=== PATIENT | female | born 1960 | race Caucasian/White ===

== ENCOUNTER → 2016-10-06 | Outpatient (CLI) | payer OTHER ==
--- NOTE | 2016-10-10 08:01 | MAMMOGRAPHY REPORT ---
THIS REPORT HAS BEEN AMENDED. BILATERAL DIGITAL SCREENING MAMMOGRAM TOMOSYNTHESIS WITH CAD: 10/06/2016 CLINICAL HISTORY: Routine screening. TECHNIQUE: Bilateral breast tomosynthesis in addition to standard 2D mammography was performed. Piloe nt study was also evaluated with a Computer Aided Detection (CAD) system. COMPARISON: No prior exams were available for comparison. BREAST COMPOSITION: There are scattered areas of fibroglandular density in both breasts. FINDINGS: There is a 7 mm focal asymmetry in the 6:00 to 7:00 middle one third of the left breast wi th angular borders on the tomosynthesis images. Definitive characterization with targeted ultrasound and possible additional mammographic views is recommended. No other suspicious mass, architectural distortion or cluster of microcalcifications is seen bilatera lly. IMPRESSION: ACR BI-RADS CATEGORY 0: INCOMPLETE EVALUATION: NEED ADDITIONAL IMAGING EVALUATION The 7 mm focal asymmetry in the left 6:007:00 breast needs additional evaluation. The patient will be called to schedule an appointment. Approximately 10% of breast cancers are not detected with mammography. A negative mammographic report should not delay biopsy if a clinically suggestive mass is present. Marly Esquivel M.D. ay/:10/09/2016 15:20:44 Rivet Tosser: Simba JONES(Franky)(M), [facility] letter sent: [facility] 0 BI-RADS Code: ACR BI-RADS Category 0: Incomplete Evaluation: Need Additional Imaging Evaluation AMENDMENT: 10/19/2016 Marly Esquivel M.D. Prior outside mammograms from [place] dated 08/19/2009 and 03/16/2011 became available for review. T he 7 mm focal asymmetry in the left 6:00 to 7:00 breast as seen on the current screening exam is stil l increasingly conspicuous compared to the prior outside exams. Therefore, additional imaging evalua tion is needed. Amended BI-RADS: ACR BI-RADS Category 0: Incomplete Evaluation: Need Additional Imaging Evaluation letter sent: [facility] 0
== END | disposition home or self-care (01) ==
LOC: C.MAMM 13:42
PROVIDERS: ATTEND Family Medicine
DX: Z12.31 Encounter for screening mammogram for malignant neoplasm of breast (principal); N64.9 Disorder of breast, unspecified

== ENCOUNTER → 2016-10-10 | Outpatient (CLI) | payer OTHER ==
--- NOTE | 2016-10-10 10:00 | DIAGNOSTIC IMAGING REPORT ---
RIGHT HAND MIN 3 VIEWS ROUTINE CLINICAL HISTORY: NUMBNESS AND TINGLING IN BOTH HANDS Right pain. Neuropathy. COMPARISON: None. DISCUSSION: The bones and joint spaces appear intact. There is no evidence of fracture, dislocation or bony disease. There is no evidence for soft tissue swelling. IMPRESSION: Negative study. Electronically signed by: Ezra Sousa M.D. 10/10/2016 9:59 AM Dictated Date/Time: 10/10/2016 9:58 AM
--- NOTE | 2016-10-10 10:01 | DIAGNOSTIC IMAGING REPORT ---
CERVICAL SPINE 5 VIEWS HISTORY: NUMBNESS AND TINGLING IN BOTH HANDS COMPARISON: None. FINDINGS: The cervical spine is visualized from C1 through the superior endplate of T1. There is no fracture. No subluxation. Congenital partial fusion C3-C4. Prevertebral soft tissues and the atlantodens interval are intact. IMPRESSION: Congenital partial fusion C3-C4. Otherwise negative study. Electronically signed by: Ezra Sousa M.D. 10/10/2016 10:00 AM Dictated Date/Time: 10/10/2016 9:59 AM
--- NOTE | 2016-10-10 10:02 | DIAGNOSTIC IMAGING REPORT ---
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 DISCUSSION: The bones and joint spaces appear intact. There is no evidence of fracture, dislocation or bony disease. Heel spur is present. IMPRESSION: Heel spur. Otherwise negative study. Electronically signed by: Ezra Sousa M.D. 10/10/2016 10:01 AM Dictated Date/Time: 10/10/2016 10:00 AM
--- NOTE | 2016-10-10 10:10 | DIAGNOSTIC IMAGING REPORT ---
LEFT HAND 3 VIEWS HISTORY: NUMBNESS AND TINGLING IN BOTH HANDS COMPARISON: None. FINDINGS: There is no fracture or dislocation. Soft tissues are unremarkable. No radiopaque foreign bodies. Bone mineralization is intact. Cartilage spaces are maintained for age. No erosions identified. IMPRESSION: Unremarkable left hand. Electronically signed by: Mo Hogan M.D. 10/10/2016 10:09 AM Dictated Date/Time: 10/10/2016 10:07 AM
--- NOTE | 2016-10-10 10:15 | DIAGNOSTIC IMAGING REPORT ---
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 FINDINGS: There is no fracture. There is 6 mm of anterolisthesis of L4-L5. Moderate disc space narrowing at L4-L5 and L5-S1. Mild disc space narrowing at L2-L3. Moderate facet degenerative changes seen within the lower lumbar spine. Cholecystectomy. IMPRESSION: 1. No fractures within the lumbar spine. 2. 6 mm of anterolisthesis of L4 on L5. 3. Degenerative changes as described above. Electronically signed by: Mo Hogan M.D. 10/10/2016 10:14 AM Dictated Date/Time: 10/10/2016 10:09 AM
[2016-10-13 05:26] LABS: ANTI-CENTROMERE AB <1.0 NEG AI (<1.0 NEG); ANTI-SS-A <1.0 NEG AI (<1.0 NEG); ANTI-SS-B <1.0 NEG AI (<1.0 NEG); DNA ds CRITHIDIA NEGATIVE (NEGATIVE); MICROSOMAL AB <1 IU/ML (<9); Sm Antibody <1.0 NEG AI (<1.0 NEG)
[2016-10-13 14:42] LABS: ANA TITER > OR = 1:1280 TITER (<1:40)
== END | disposition home or self-care (01) ==
LOC: C.LAB1850 08:55
PROVIDERS: ATTEND Internal Medicine Rheumatology
DX: R76.8 Other specified abnormal immunological findings in serum (principal); R20.2 Paresthesia of skin; M54.2 Cervicalgia; M54.5 Low back pain; R20.0 Anesthesia of skin; Q76.49 Other congenital malformations of spine, not associated with scoliosis; M77.31 Calcaneal spur, right foot; M43.16 Spondylolisthesis, lumbar region; M47.816 Spondylosis without myelopathy or radiculopathy, lumbar region

== ENCOUNTER → 2016-11-01 | Outpatient (CLI) | payer OTHER ==
--- NOTE | 2016-11-01 15:51 | MAMMOGRAPHY REPORT ---
UNILATERAL LEFT DIGITAL DIAGNOSTIC MAMMOGRAM TOMOSYNTHESIS AND TARGETED LEFT ULTRASOUND: 11/01/2016 CLINICAL HISTORY: Callback from screening mammogram for left breast asymmetry. TECHNIQUE: Breast tomosynthesis in addition to standard 2D mammography was performed. Spot compress ion left CC and MLO 2-D and tomosynthesis images were obtained. COMPARISON: Comparison is made to exam dated: 10/06/2016 mammogram - [facility]. BREAST COMPOSITION: There are scattered areas of fibroglandular density in the left breast. FINDINGS: The previously described focal asymmetry in the left 6 to 7:00 breast effaces on the addit ional spot compression views, and has the appearance of normal fibroglandular tissue on the tomosynth esis images. No suspicious mass or other suspicious mammographic abnormality is noted on the additio nal images. Targeted ultrasound was performed of the left 6 to 7:00 breast in the region of the mammographic asym metry. Sonographically normal tissue is seen, without evidence of a mass or other suspicious sonogra phic abnormality. IMPRESSION: ACR BI-RADS CATEGORY 2: BENIGN, TARGETED ULTRASOUND ACR BI-RADS CATEGORY 2: BENIGN The left breast asymmetry effaces on the additional views, without corresponding suspicious sonograph ic abnormality evident. The asymmetry is benign and compatible with normal fibroglandular tissue. T here is no mammographic or targeted sonographic evidence of malignancy. A 1 year screening mammogram is recommended. The patient has been verbally notified of the results. Approximately 10% of breast cancers are not detected with mammography. A negative mammographic report should not delay biopsy if a clinically suggestive mass is present. Deisy Lake M.D. ah/:11/01/2016 15:00:01 Real Estate Executive Assistant: Edelmira SHETH)([place]), [facility] letter sent: Normal 1/2 BI-RADS Code: ACR BI-RADS Category 2: Benign Ultrasound BI-RADS: ACR BI-RADS Category 2: Benign
== END | disposition home or self-care (01) ==
LOC: C.MAMM 14:17
PROVIDERS: ATTEND Family Medicine
DX: N64.89 Other specified disorders of breast (principal)

== ENCOUNTER → 2017-04-12 | Outpatient (CLI) | payer OTHER ==
--- NOTE | 2017-04-12 08:52 | DIAGNOSTIC IMAGING REPORT ---
ULTRASOUND RIGHT UPPER QUADRANT ABDOMEN; ULTRASOUND OF THE SPLEEN CLINICAL HISTORY: Left upper quadrant abdominal pain. COMPARISON STUDY: No priors. TECHNIQUE: Real-time, grayscale, and color flow sonography of the right upper quadrant of the abdomen was performed. Images are reviewed in the transverse and longitudinal planes. FINDINGS: Liver: The liver is normal in size and echotexture. There is no intrahepatic biliary ductal dilatation. The main portal vein is patent. Gallbladder: The gallbladder is surgically absent. The common bile duct measures up to 0.8 cm in diameter. Pancreas: Visualized portions of the pancreatic head and body are normal in appearance. Right kidney: Survey images of the right kidney demonstrate normal size and echotexture. There is no hydronephrosis. Ascites: None. Spleen: The spleen is normal in size and echotexture, measuring 9.6 cm in length. No perisplenic fluid is identified. IMPRESSION: 1. Unremarkable sonographic assessment of the right upper quadrant noting status post cholecystectomy. 2. The spleen is normal in appearance. Electronically signed by: Stone Perez M.D. 04/12/2017 8:51 AM Dictated Date/Time: 04/12/2017 8:49 AM
== END | disposition home or self-care (01) ==
LOC: C.ULTR 08:19
PROVIDERS: ATTEND Family Medicine
DX: R10.10 Upper abdominal pain, unspecified (principal); Z90.49 Acquired absence of other specified parts of digestive tract

== ENCOUNTER 2019-06-07 00:08 | Observation (INO) ==
[2019-06-07 00:50] LABS: Basophils # (auto) 0.06 K/uL (0-0.2); Basophils % (auto) 0.9 %; Eosinophils # (auto) 0.27 K/uL (0-0.5); Eosinophils % (auto) 3.9 %; Hematocrit (blood only) 42.5 % (37-47); Hemoglobin 14.4 g/dL (12.0-16.0); Immature Granulocytes # (auto) 0.02 K/uL (0.00-0.02); Immature Granulocytes % (auto) 0.3 %; Lymphocytes # (auto) 2.84 K/uL (1.2-3.4); Lymphocytes % (auto) 40.6 %; Mean Corpuscular Hemoglobin 31.3 pg (25-34); Mean Corpuscular Hgb Conc 33.9 g/dL (32-36); Mean Corpuscular Volume 92.4 fL (80-100); Mean Platelet Volume 9.3 fL (7.4-10.4); Monocytes # (auto) 0.35 K/uL (0.11-0.59); Neutrophils # (auto) 3.45 K/uL (1.4-6.5); Neutrophils % (auto) 49.3 %; Platelet Count 277 K/uL (130-400); RDW Coefficient of Variation 12.3 % (11.5-14.5); RDW Standard Deviation 41.4 fL (36.4-46.3); White Blood Count 6.99 K/uL (4.8-10.8)
[2019-06-07] MEDS ORDERED: LORazepam 1 MG/2 ML VIAL IV STA (01:14)
[2019-06-07 01:15] LABS: Albumin Globulin Ratio 1.1 (0.9-2); Albumin Level 4.1 gm/dl (3.4-5.0); BUN Creatinine Ratio 15.8 (10-20); Bilirubin,Total 0.2 mg/dl (0.2-1); Calcium 9.2 mg/dl (8.5-10.1); Creatinine Clr Calc Pharmacy 83.6 ml/min; Est GFR (African American) 103.5; Est GFR (Non-African American) 89.3; Globulin 3.8 gm/dl (2.5-4.0); Potassium 3.7 mmol/L (3.5-5.1); Total Protein 7.9 gm/dl (6.4-8.2)
[2019-06-07 01:27] LABS: Troponin I 0.061 ng/ml (0-0.045)
[2019-06-07] MEDS ORDERED: ASPIRIN CHEW 324 MG PO STA (01:42)
[2019-06-07 02:12] LABS: INR 0.9 (0.9-1.1); Partial Thromboplastin Time 26.5 Seconds (21.0-31.0); Prothrombin Time 9.5 Seconds (9.0-12.0)
[2019-06-07] MEDS ORDERED: HEPARIN SODIUM/DEXTROSE 25,000 UNITS/500 ML BAG IV SCH (02:15)
--- NOTE | 2019-06-07 04:02 | History & Physical Report ---
Date of Service June 07, 2019 Assessment & Plan (1) HTN (hypertension): 59 year old woman with Newly diagnosed endometrial cancer who presents with chills, hypertension and elevated troponin Elevated troponin: Differential including benny/myocarditis, takutsubo cardiomyopathy, NSTEMI ECG normal, very slight troponin elevation Less likely to be PE with no history of tachycardia, no respiratory changes and no signs or symptoms of DVT Will hold off on anticoagulation for now, with unknown met burden and bleeding and not a clear NSTEMI picture with limited risk factors and asymptomatic gave ASA 324 and will start lopressor 25 mg BID Repeat troponin now and q6h thereafter, if continuing to rise will consider anticoagulation Hypertension Possibly secondary to stress induced catecholamine IMproved markedly with ativan Starting lopressor 25 mg BID Will continue to monitor Endometrial Ca: Diagnosed by biopsy earlier this week Considered Abdominal CT to further evaluate disease burden but with patient asymptomatic in this respect and follow up surgery already planned at [facility] will defer for now DVT PPx: Will hold off pending troponins, patient is a mobile 59 year old F/E/N: NPO for now Dispo: Telemetry pending troponins and cardiology consult for possible stress test/catheterization (2) Endometrial cancer determined by uterine biopsy: (3) Elevated troponin: History of Present Illness Chief Complaint: Hypertension, chills Primary Care Provider: Megha Maya MD Flores Loyd is a 59 year old woman with a past medical history of endometriosis, fibromyalgia and recently diagnosed with grade 1 endometrial carcinoma earlier this week. She has had progressively increasing blood pressure since her first Lithographic Photographer appointment on Sunday. Tonight her pressure was as high as it's ever been with systolics consistently in the 190's. This was associated with chills and a general unwell feeling. She denies any chest pain breathing difficulties, palpitations, cough, or vomiting. Notably she has no history of hypertension and she frequently checks her blood pressure at home and was seeing numbers <120/<80 prior to this week. She has had no other new symptoms other than a throat clearing cough earlier in the week. On presentation to ED she was hypertensive with BP as high as 222/122 she was also quite tremulous and very anxious. She was given IV lorazepam and her pressure quickly dropped to 142/88. She has not been tachycardic, and she is afebrile. Her labwork is significant for a positive troponin of .061 and elevated AST and ALT. Otherwise negative including white count, electrolytes and renal function. She now feels to be close to her usual state of health apart from some intermittent chills though not as severe as previously. She feels her abdomen is slightly distended too but she chalks this up to eating out and having junk food yesterday to get her mind off of her diagnosis. Patient had a normal stress test in 2017, she has a family history of history of heart attack in mother in mid sixties and father had CABG surgery in his late 70's. DOes not smoke, does not use drugs, drinks only occasionally. Lives at home with who is also present at bedside today. Allergies Allergy/AdvReac Type Severity Reaction Status Date / Time codeine AdvReac Mild GI upset Verified 06/07/19 00:49 meloxicam AdvReac Mild GI upset Verified 06/07/19 00:49 Home Medications Home Medications Medication Instructions Recorded Confirmed Type multivitamin [Multiple Vitamins] 1 tab PO DAILY 06/07/19 06/07/19 History omega 5-vlk-loe-fish oil 1 cap PO DAILY 06/07/19 06/07/19 History Past Med/Surg History Medical History Anemia Arthritis Dyslipidemia Endometrial cancer determined by uterine biopsy Endometriosis Fibromyalgia Gallbladder disease High cholesterol HTN (hypertension) with goal to be determined Pain in female genitalia on intercourse Pelvic pain Postmenopausal bleeding Scleroderma Surgical History H/O laparoscopy History of cholecystectomy History of exploratory laparotomy History of laparoscopy fulguration uterine surface endometriosis tissue anterior History of tonsillectomy History of tonsillectomy and adenoidectomy S/P cholecystectomy [place] teeth removed Family History Father Hypertension Dyslipidemia Mother Hypertension Dyslipidemia Other Breast cancer Diabetes Heart disease Thyroid disease Social History marital status: marital status details: Armando Cartagena Current Living Situation: Spouse current occupational status: 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, lived in [facility] Feels Safe at Home: Yes Smoking Status: Never smoker Hx Alcohol Use: Yes (a few/month) Physical Activity Frequency: Daily Review of Systems Constitutional: + chills; no fever Eyes: no problem reported Respiratory: no cough and no dyspnea Cardiovascular: no chest pain, no dyspnea at rest, no dyspnea on exertion, no palpitations and no syncope Gastrointestinal: + bloating and + nausea; no abdominal pain Physical Exam Constitutional: WD/WN, vitals as above Eyes: PERRL, conjunctivae normal, anicteric sclerae ENMT: external ear and nose normal, oropharynx normal Respiratory: normal respiratory effort, lungs clear to auscultation Cardiovascular: Rate/Rhythm: regular rate and regular rhythm Heart Sounds: no click, no gallop, no murmur and no cardiac rub Vessels: normal peripheral pulses Extremities: normal capillary refill; no calf tenderness Gastrointestinal (Abdomen): normal bowel sounds, soft, nontender, no hepatosplenomegaly Skin: no rashes, warm and dry Neurologic: PERRL, EOMI, accommodation nl, no face palsy, no dysarthria Psychiatric: Orientation: alert and oriented x 3 Affect: + anxious affect Results & Data Vital Signs (Past 12 Hours) Vital Signs Temp Pulse Pulse Resp BP BP Pulse Ox 06/07/19 01:28 67 20 197/117 H 95 06/07/19 01:16 69 13 98 06/07/19 01:15 73 27 H 197/117 H 99 06/07/19 01:12 66 19 202/100 H 97 06/07/19 01:01 66 13 97 06/07/19 01:00 63 13 204/97 H 97 06/07/19 00:46 69 13 96 06/07/19 00:45 67 13 187/99 H 96 06/07/19 00:43 74 13 189/114 H 97 06/07/19 00:35 72 14 96 06/07/19 00:34 77 16 222/122 H 96 06/07/19 00:15 36.4 C L 81 18 218/122 H 97 (1) HTN (hypertension) Hypertension type: unspecified Qualified Code(s): I10 - Essential (primary) hypertension
[2019-06-07] MEDS ORDERED: POLYETHYLENE (MIRALAX) 17 GM PACK PO PRN (04:30)
[2019-06-07] MEDS ORDERED: ONDANSETRON INJ 2 MG/ML 2 ML VIAL IV PRN (04:30)
[2019-06-07] MEDS ORDERED: ACETAMINOPHEN 325 MG TAB PO PRN (04:30)
[2019-06-07] MEDS ORDERED: NITROGLYCERIN SL 0.4 MG/TAB TAB SL PRN (04:30)
[2019-06-07] MEDS ORDERED: LORazepam 1 MG TAB PO PRN (04:30)
[2019-06-07] MEDS ORDERED: INFLUENZA VIRUS QUAD VACCINE 0.5 ML SYR IM ONE (04:36)
[2019-06-07] MEDS ORDERED: INFLUENZA ADMINISTRATION CHARGE ONE (04:36)
--- NOTE | 2019-06-07 04:42 | Emergency Department Note ---
Entered by Kellie Lopez acting as a scribe for Becca Cali DO History of Present Illness General Chief complaint: Hypertension Stated complaint: HI BP,ABD PAIN,CHILLS,JUST HAD BIOPSY Time Seen by Provider: 06/07/19 00:22 Source: patient and family () History of Present Illness Onset (ago): week(s) 1 Location: chest (hypertension) Pain Consistency: + constant Associated symptoms: + other (chills, dry mouth, feeling "odd" all over, ongoing abdominal pain secondary to recent ca dx, intermittent back pain) The patient is a 59 year old female with a history of HTN, high cholesterol, anemia, and endometrial cancer who presents to the Emergency Room with complaints of hypertension. The patient states that her blood pressure is normally between 110-120 systolically as per her own recording at home. However, for the past week her systolic readings have been in the 140s and 170s systolically. The patient has been on blood pressure medication in the past but admits that she took herself off of it a few years ago. She states that this evening she was feeling "odd" all over and experienced chills and dry mouth. Additionally she complains of recent intermittent back pain as well as ongoing abdominal pain secondary to her recent diagnosis of endometrial cancer confirmed by a biopsy performed on 06/03/19 (no new abdominal pain today). Due to this recent diagnosis the patient admits to feeling more stressed than usual but denies a history of anxiety. Of note, she reports that she had a high amount of salt intake 1 day ago and her only PO today was a smoothie. The patient denies a history of DM or cardiovascular problems and offers no further concerns at this time. Home Medications Home Medications Medication Instructions Recorded Confirmed Type multivitamin [Multiple Vitamins] 1 tab PO DAILY 06/07/19 06/07/19 History omega 9-yca-ozn-fish oil 1 cap PO DAILY 06/07/19 06/07/19 History Allergies Allergy/AdvReac Type Severity Reaction Status Date / Time codeine AdvReac Mild GI upset Verified 06/07/19 00:49 meloxicam AdvReac Mild GI upset Verified 06/07/19 00:49 Past Med/Surg History Medical History Anemia Arthritis Dyslipidemia Endometrial cancer determined by uterine biopsy Endometriosis Fibromyalgia Gallbladder disease High cholesterol HTN (hypertension) with goal to be determined Pain in female genitalia on intercourse Pelvic pain Postmenopausal bleeding Scleroderma Surgical History H/O laparoscopy History of cholecystectomy History of exploratory laparotomy History of laparoscopy fulguration uterine surface endometriosis tissue anterior History of tonsillectomy History of tonsillectomy and adenoidectomy S/P cholecystectomy [place] teeth removed Family History Father Hypertension Dyslipidemia Mother Hypertension Dyslipidemia Other Breast cancer Diabetes Heart disease Thyroid disease Social History Preferred Language: German Beliefs That Will Affect Care: None marital status: marital status details: Armando Cartagena Current Living Situation: Spouse current occupational status: retired 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 and A total of 10 systems reviewed and were otherwise negative Physical Exam Vital Signs Vital Signs - 24 hr 06/07/19 00:15 06/07/19 00:34 06/07/19 00:35 Temperature 36.4 C L Temperature Source Oral Pulse Rate 81 77 72 Pulse Rate [Apical] Pulse Rate from SpO2 Sensor 76 73 Respiratory Rate 18 16 14 Respiratory Effort / Characteristics Non-Labored Spontaneous Respiratory Depth Normal Respiratory Pattern Blood Pressure 218/122 H 222/122 H Blood Pressure [Left Arm] Blood Pressure Mean 154 156 Blood Pressure Mean [Left Arm] Blood Pressure Position Sitting Blood Pressure Position [Left Arm] Pulse Oximetry 97 96 96 Oxygen Delivery Method Room Air Sepsis Recent Fever Within 48 Hours No Sepsis New/Unexplained Change in Mental Status No Sepsis Action Taken by Nursing No Action Required 06/07/19 00:43 06/07/19 00:45 06/07/19 00:46 Temperature Temperature Source Pulse Rate 74 67 69 Pulse Rate [Apical] Pulse Rate from SpO2 Sensor 79 68 68 Respiratory Rate 13 13 13 Respiratory Effort / Characteristics Respiratory Depth Respiratory Pattern Blood Pressure 189/114 H 187/99 H Blood Pressure [Left Arm] Blood Pressure Mean 126 136 Blood Pressure Mean [Left Arm] Blood Pressure Position Blood Pressure Position [Left Arm] Pulse Oximetry 97 96 96 Oxygen Delivery Method Sepsis Recent Fever Within 48 Hours Sepsis New/Unexplained Change in Mental Status Sepsis Action Taken by Nursing 06/07/19 01:00 06/07/19 01:01 06/07/19 01:12 Temperature Temperature Source Pulse Rate 63 66 66 Pulse Rate [Apical] Pulse Rate from SpO2 Sensor 63 67 64 Respiratory Rate 13 13 19 Respiratory Effort / Characteristics Respiratory Depth Respiratory Pattern Blood Pressure 204/97 H 202/100 H Blood Pressure [Left Arm] Blood Pressure Mean 127 140 Blood Pressure Mean [Left Arm] Blood Pressure Position Blood Pressure Position [Left Arm] Pulse Oximetry 97 97 97 Oxygen Delivery Method Sepsis Recent Fever Within 48 Hours Sepsis New/Unexplained Change in Mental Status Sepsis Action Taken by Nursing 06/07/19 01:15 06/07/19 01:16 06/07/19 01:28 Temperature Temperature Source Pulse Rate 73 69 Pulse Rate [Apical] 67 Pulse Rate from SpO2 Sensor 70 69 Respiratory Rate 27 H 13 20 Respiratory Effort / Characteristics Non-Labored Respiratory Depth Normal Respiratory Pattern Regular Blood Pressure 197/117 H Blood Pressure [Left Arm] 197/117 H Blood Pressure Mean 129 Blood Pressure Mean [Left Arm] 143 Blood Pressure Position Blood Pressure Position [Left Arm] Lying Pulse Oximetry 99 98 95 Oxygen Delivery Method Room Air Sepsis Recent Fever Within 48 Hours Sepsis New/Unexplained Change in Mental Status Sepsis Action Taken by Nursing 06/07/19 01:30 06/07/19 01:45 06/07/19 02:00 Temperature Temperature Source Pulse Rate 68 65 71 Pulse Rate [Apical] Pulse Rate from SpO2 Sensor 67 65 71 Respiratory Rate 18 21 13 Respiratory Effort / Characteristics Respiratory Depth Respiratory Pattern Blood Pressure 169/99 H 165/96 H 171/94 H Blood Pressure [Left Arm] Blood Pressure Mean 125 128 110 Blood Pressure Mean [Left Arm] Blood Pressure Position Blood Pressure Position [Left Arm] Pulse Oximetry 95 94 95 Oxygen Delivery Method Sepsis Recent Fever Within 48 Hours Sepsis New/Unexplained Change in Mental Status Sepsis Action Taken by Nursing 06/07/19 02:15 06/07/19 02:31 06/07/19 02:45 Temperature Temperature Source Pulse Rate 72 73 73 Pulse Rate [Apical] Pulse Rate from SpO2 Sensor 72 75 74 Respiratory Rate 19 13 19 Respiratory Effort / Characteristics Respiratory Depth Respiratory Pattern Blood Pressure 161/92 H 194/72 H 168/97 H Blood Pressure [Left Arm] Blood Pressure Mean 110 121 115 Blood Pressure Mean [Left Arm] Blood Pressure Position Blood Pressure Position [Left Arm] Pulse Oximetry 95 96 96 Oxygen Delivery Method Sepsis Recent Fever Within 48 Hours Sepsis New/Unexplained Change in Mental Status Sepsis Action Taken by Nursing 06/07/19 03:00 Temperature Temperature Source Pulse Rate 70 Pulse Rate [Apical] Pulse Rate from SpO2 Sensor 70 Respiratory Rate 17 Respiratory Effort / Characteristics Respiratory Depth Respiratory Pattern Blood Pressure 142/88 H Blood Pressure [Left Arm] Blood Pressure Mean 102 Blood Pressure Mean [Left Arm] Blood Pressure Position Blood Pressure Position [Left Arm] Pulse Oximetry 95 Oxygen Delivery Method Sepsis Recent Fever Within 48 Hours Sepsis New/Unexplained Change in Mental Status Sepsis Action Taken by Nursing HEENT: Head - normocephalic and atraumatic Pupils are equal, round, and reactive to light. Extraocular eye muscles are intact, and sclera are anicteric. Nose - moist nasal mucosa without discharge. Mouth - moist buccal mucosa. Oropharynx is nonerythematous and there is no tonsillar exudate or edema noted. Neck: Supple; no JVD or cervical lymphadenopathy Heart: Regular rate and rhythm. There is a normal S1 and S2 with no murmurs, cli cks, or gallops appreciated. Lungs: Clear to auscultation bilaterally with no wheezes, rales, or rhonchi. Abdomen: Soft, diffuse tenderness, nondistended, with good bowel sounds. There are no palpable pulsatile masses or hepatosplenomegaly. There is no guarding, rigidity, or rebound noted. Extremities: No evidence of cyanosis, clubbing, or edema. There are easily palpable peripheral pulses. Skin: warm and dry with good turgor and no rashes. Course Course 0030: Past medical records reviewed. The patient was evaluated in room B02. A complete history and physical exam was performed. An order was placed for continuous cardiac monitoring. The patient was in a normal sinus rhythm at a rate of 65. 0033: A twelve-lead EKG was obtained. 0114: I checked on the patient and she states that she is feeling slightly more relaxed but her BP remains elevated so I am ordering Ativan. 0124: I ordered Ativan 1 mg IV. 0148: I ordered Aspirin 324 mg PO. 0152: I spoke to Dr. Winslow, [facility]ist who will further evaluate the patient. 0155: I re-checked the patient and updated her on plan to admit. The patient verbally expressed understanding and agreement of the treatment plan. The patient will be evaluated for further treatment. Administered Medications Discontinued Medications Aspirin (Aspirin) 324 mg PO NOW STA Stop: 06/07/19 01:43 Last Admin: 06/07/19 01:48 Dose: 324 mg Documented by: [id number] Heparin Sodium/Dextrose () 1 ea IV NOW STA; Protocol Stop: 06/07/19 02:12 Last Admin: 06/07/19 03:11 Dose: Not Given Documented by: [id number] Lorazepam (Ativan) 1 mg in 2 mls @ 2 mls/min IV NOW STA Stop: 06/07/19 01:15 Last Admin: 06/07/19 01:24 Dose: 2 mls/min Documented by: [id number] Heparin Sodium/Dextrose (Heparin Sodium/Dextrose) 25,000 units in 500 mls @ 0.02 mls/hr IV .Q24H [facility]; Protocol Stop: 07/07/19 02:14 Last Admin: 06/07/19 03:11 Dose: Not Given Documented by: [id number] Critical Care Time Critical Care Time: Yes Total Critical Care Time: 45 I have personally spent 45 minutes of critical care time in the direct management of this patient. This includes bedside care, interpretation of diagnostic studies, and testing, discussion with consultants, patient, and family members, and other required patient management activities. This 45 minutes is in excess of all separately billable procedures. Medical Decision Making Differential Diagnosis Differential diagnosis includes but is not limited to hypertensive crisis, cardiac ischemia, anxiety, PE, electrolyte abnormality, amongst others considered. Medical Records Attestation: I reviewed the patient's medical records. Home Medications Current Medication List: was personally reviewed by me Laboratory Data Attestation: I reviewed the patient's lab results. Result diagrams: 06/07/19 00:40 06/07/19 00:40 Lab Results 06/07/19 06/07/19 06/07/19 Range/Units 00:40 00:40 00:40 WBC 6.99 (4.8-10.8) K/uL RBC 4.60 (4.2-5.4) M/uL Hgb 14.4 (12.0-16.0) g/dL Hct 42.5 (37-47) % MCV 92.4 (80-100) fL MCH 31.3 (25-34) pg MCHC 33.9 (32-36) g/dL RDW Std Deviation 41.4 (36.4-46.3) fL RDW Coeff of Jaimie 12.3 (11.5-14.5) % Plt Count 277 (130-400) K/uL MPV 9.3 (7.4-10.4) fL Immature Gran % (Auto) 0.3 % Neut % (Auto) 49.3 % Lymph % (Auto) 40.6 % [place] % (Auto) 5.0 % Eos % (Auto) 3.9 % Baso % (Auto) 0.9 % Immature Gran # (Auto) 0.02 (0.00-0.02) K/uL Neut # (Auto) 3.45 (1.4-6.5) K/uL Lymph # (Auto) 2.84 (1.2-3.4) K/uL [place] # (Auto) 0.35 (0.11-0.59) K/uL Eos # (Auto) 0.27 (0-0.5) K/uL Baso # (Auto) 0.06 (0-0.2) K/uL PT 9.5 (9.0-12.0) Seconds INR 0.9 (0.9-1.1) APTT 26.5 (21.0-31.0) Seconds PTT Ratio 1.0 Sodium 141 (136-145) mmol/L Potassium 3.7 (3.5-5.1) mmol/L Chloride 111 H (98-107) mmol/L Carbon Dioxide 25 (21-32) mmol/L Anion Gap 5.0 (3-11) BUN 12 (7-18) mg/dl Creatinine 0.74 (0.6-1.2) mg/dl Est Cr Clr Drug Dosing 83.6 ml/min Est GFR ( Amer) 103.5 Est GFR (Non-Af Amer) 89.3 BUN/Creatinine Ratio 15.8 (10-20) Glucose 101 H (70-99) mg/dl Calcium 9.2 (8.5-10.1) mg/dl Total Bilirubin 0.2 (0.2-1) mg/dl AST 59 H (15-37) U/L ALT 87 H (12-78) U/L Alkaline Phosphatase 96 (45-117) U/L Troponin I 0.061 H* (0-0.045) ng/ml Total Protein 7.9 (6.4-8.2) gm/dl Albumin 4.1 (3.4-5.0) gm/dl Globulin 3.8 (2.5-4.0) gm/dl Albumin/Globulin Ratio 1.1 (0.9-2) Specimen Hemolysis Imaging Data Attestation: I personally reviewed and interpreted this imaging study as follows: My Impression: 1 View Chest X-Ray: * Narrow mediastinum * No pulmonary findings ECG Data Attestation: I personally reviewed and interpreted this ECG as follows: Indication: + other (hypertension) Rate (beats per minute): 75 Rhythm: + normal sinus ECG Findings: + Other (no ischemia); no PACs and no PVCs Blood Pressure Blood Pressure Findings: Elevated blood pressure Blood Pressure Disposition: further management by hospitalist DON Narrative The patient is a 59 year old female with a history of HTN, high cholesterol, anemia, and endometrial cancer who presents to the Emergency Room with complaints of hypertension. The patient admits that she has had an increased salt intake and significant sleep deprivation over the past 2 days as a result of a recent diagnosis of endometrial cancer. Upon presentation today, the patient has a normal EKG but has an elevated troponin consistent with an NSTEMI. The patient has had no chest discomfort or shortness of breath. I discussed the case with the [facility] hospitalist and they will evaluate for further management. The patient did receive oral aspirin and her blood pressure came down nicely after receiving IV Ativan. Impression & Plan Non-ST elevation CT (NSTEMI), HTN (hypertension) Discharge Plan Visit Data *Final* Discharge Date/Time: 06/07/19 03:36 Chief Complaint: Hypertension Stated Complaint: HI BP,ABD PAIN,CHILLS,JUST HAD BIOPSY ED Provider: Becca Cali Discharge Problem: Non-ST elevation CT (NSTEMI), HTN (hypertension) Patient Disposition: Admitted As Inpatient Discharge Instructions Interventions: ED Discharge Assessment Last Done: 06/07/19 03:36 Discharge Problem: HTN (hypertension) Qualifiers: Hypertension type: unspecified Qualified Code(s): I10 - Essential (primary) hypertension The scribe's documentation has been prepared under my direction and personally reviewed by me in its entirety. I confirm that the note above accurately reflects all work, treatment, procedures, and medical decision making performed by me.
[2019-06-07] MEDS: METOPROLOL TARTRATE 25 MG TAB PO SCH ×3 (04:57→09:26)
[2019-06-07 05:17] LABS: Basophils # (auto) 0.05 K/uL (0-0.2); Basophils % (auto) 0.6 %; Eosinophils # (auto) 0.16 K/uL (0-0.5); Hemoglobin 13.4 g/dL (12.0-16.0); Immature Granulocytes # (auto) 0.02 K/uL (0.00-0.02); Immature Granulocytes % (auto) 0.3 %; Lymphocytes # (auto) 2.56 K/uL (1.2-3.4); Lymphocytes % (auto) 32.7 %; Mean Corpuscular Hgb Conc 33.5 g/dL (32-36); Mean Corpuscular Volume 92.6 fL (80-100); Mean Platelet Volume 9.3 fL (7.4-10.4); Monocytes # (auto) 0.46 K/uL (0.11-0.59); Monocytes % (auto) 5.9 %; Neutrophils # (auto) 4.59 K/uL (1.4-6.5); Neutrophils % (auto) 58.5 %; Platelet Count 270 K/uL (130-400); RDW Coefficient of Variation 12.2 % (11.5-14.5); RDW Standard Deviation 41.6 fL (36.4-46.3); Red Blood Count 4.32 M/uL (4.2-5.4); White Blood Count 7.84 K/uL (4.8-10.8)
--- NOTE | 2019-06-07 05:21 | XRay Report ---
XR chest 1V portable CLINICAL HISTORY: 59 years-old Female presenting with Hypertension, flank pain, nausea, chills, abdom inal bloating, recent uterine biopsy. TECHNIQUE: Portable upright AP view of the chest was obtained. COMPARISON: None. FINDINGS: Cardiomediastinal silhouette normal. No focal opacity. No large effusion or pneumothorax. Osseous str uctures normal. Upper abdomen normal. IMPRESSION: 1. No acute cardiopulmonary disease. ACT 112: Negative or not required by law. Electronically signed by: Gabe Busch M.D. 06/07/2019 5:20 AM
[2019-06-07 05:45] LABS: Albumin Level 3.6 gm/dl (3.4-5.0); BUN Creatinine Ratio 14.3 (10-20); Creatinine Clr Calc Pharmacy 83.7 ml/min; Est GFR (African American) 105.2; Est GFR (Non-African American) 90.8; Potassium 3.8 mmol/L (3.5-5.1)
[2019-06-07 05:48] LABS: Albumin Globulin Ratio 1.1 (0.9-2); Bilirubin,Total 0.1 mg/dl (0.2-1); Globulin 3.3 gm/dl (2.5-4.0); Total Protein 6.9 gm/dl (6.4-8.2); Troponin I 0.05 ng/ml (0-0.045)
[2019-06-07] MEDS ORDERED: ENOXAPARIN INJ 40 MG/0.4 ML SYR SQ SCH (06:00)
--- NOTE | 2019-06-07 06:00 | Ultrasound Report ---
US venous doppler LE BI CLINICAL HISTORY: 59 years-old Female presenting with LE discomfort, elevated trop, endometrial CA. TECHNIQUE: Real-time grayscale and color and spectral Doppler ultrasound imaging of the veins of the bilateral lower extremities was performed. Compression and augmentation were also utilized. COMPARISON: None. FINDINGS: RIGHT: Common femoral vein: Patent. Greater saphenous vein (superficial): Patent. Deep femoral vein: Patent. Femoral vein: Patent. Popliteal vein: Patent. Calf veins: Patent. LEFT: Common femoral vein: Patent. Greater saphenous vein (superficial): Patent. Deep femoral vein: Patent. Femoral vein: Patent. Popliteal vein: Patent. Calf veins: Patent. Other: None. IMPRESSION: No evidence of deep venous thrombosis. ACT 112: Negative or not required by law. Electronically signed by: Gabe Busch M.D. 06/07/2019 5:59 AM
[2019-06-07] MEDS ORDERED: MULTIVITAMIN TAB PO SCH (09:00)
[2019-06-07] MEDS ORDERED: OMEGA-3 (PURIFIED FISH OIL) 1 GM CAP PO SCH (09:00)
--- NOTE | 2019-06-07 10:14 | Electrocardiogram Report ---
Test Reason : Blood Pressure : / mmHG Vent. Rate : 075 BPM Atrial Rate : 075 BPM P-R Int : 170 ms QRS Dur : 086 ms QT Int : 410 ms P-R-T Axes : 042 049 035 degrees QTc Int : 457 ms Poor data quality, interpretation may be adversely affected Normal sinus rhythm Normal ECG No previous ECGs available Confirmed by Johnnie Smith ([id number]) on 06/07/2019 10:14:21 AM Referred By: REFERRED SELF Confirmed By:Johnnie Smith
--- NOTE | 2019-06-07 11:04 | XCELERA ---
[id number] \\[id number]
--- NOTE | 2019-06-07 11:36 | Discharge Summary ---
Date of Service June 07, 2019 Admission HPI Per Admitting Provider Flores Loyd is a 59 year old woman with a past medical history of endometriosis, fibromyalgia and recently diagnosed with grade 1 endometrial carcinoma earlier this week. 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 Tonight her pressure was as high as it's ever been with systolics consistently in the 190's. This was associated with chills and a general unwell feeling. She denies any chest pain breathing difficulties, palpitations, cough, or vomiting. Notably she has no history of hypertension and she frequently checks her blood pressure at home and was seeing numbers <120/<80 prior to this week. She has had no other new symptoms other than a throat clearing cough earlier in the week. On presentation to ED she was hypertensive with BP as high as 222/122 she was also quite tremulous and very anxious. She was given IV lorazepam and her pressure quickly dropped to 142/88. She has not been tachycardic, and she is afebrile. Her labwork is significant for a positive troponin of .061 and elevated AST and ALT. Otherwise negative including white count, electrolytes and renal function. She now feels to be close to her usual state of health apart from some intermittent chills though not as severe as previously. She feels her abdomen is slightly distended too but she chalks this up to eating out and having junk food yesterday to get her mind off of her diagnosis. Patient had a normal stress test in 2017, she has a family history of history of heart attack in mother in mid sixties and father had CABG surgery in his late 70's. DOes not smoke, does not use drugs, drinks only occasionally. Lives at home with who is also present at bedside today. Principal Diagnosis Pt is feeling much better. She is tolerating PO. No further chills. She feels her abd distention is much improved also. She states that over the last several days, she has had elevated BP. Pt has hx of HTN several years ago. She changed to a more plant based diet and was able to d/c this. She had been on metoprolol prior. She takes daily BP readings and records them. She notes that on Sunday her BP was 101/78. Sunday it was 144/86 prior to a risk prevention engineer appt for a biopsy for abn vaginal bleeding. She has been very anxious about this process and was told 2 days later that she has endometrial cancer. She states that she generally eats a very healthy diet, but since Sunday she has been eating "junk food", including lots of salt and dairy, which have given her issues in the past and she generally avoids in large quantities. She was apparently quite bloated yesterday, which she states started with the diet changes. Pt denies fever, SOB, chest pain, abd pain, n/v/c/d, LE pain or swelling. Discharge Exam Constitutional WD/WN, vitals as above Eyes normal visual cortez by confrontation and + anicteric sclerae Neck normal visual inspection and trachea midline Respiratory normal respiratory effort, lungs clear to auscultation Cardiovascular Rate/Rhythm: regular rate and regular rhythm Gastrointestinal (Abdomen) Inspection/Auscultation: abdomen not distended Percussion/Palpation: abdomen soft; abdomen nontender Musculoskeletal Head/Neck/Chest: normocephalic and head atraumatic Skin no rashes, warm and dry Neurologic awake; not confused Speech / Cognition: normal speech Psychiatric A+Ox3, euthymic affect Discharge Data Allergies Allergy/AdvReac Type Severity Reaction Status Date / Time codeine AdvReac Mild GI upset Verified 06/07/19 00:49 meloxicam AdvReac Mild GI upset Verified 06/07/19 00:49 Consultations 06/07/19 01:52 ED Decision to Admit Stat 06/07/19 04:30 Consult Cardiology Routine 06/07/19 11:16 Consult Health Information Management Routine Ordered Studies 06/07/19 03:[address] [facility] Urgent Hospital Course (1) HTN (hypertension): 59 year old woman with Newly diagnosed endometrial cancer who presents with chills, hypertension and elevated troponin Elevated troponin: 0.061 -> 0.05 likely related to demand ischemia ECHO with EF 65-70% and no valvular issues noted LDL 104, HDL 54 LE US neg for DVT Hypertension Possibly secondary to stress/anxiety and increase in salt/dairy/processed foods the last few days Improved markedly with ativan Pt keeps detailed notes regarding her daily BP and is generally in the 110s-120s or lower until Sunday Hesitant to start scheduled medication given HTN is possibly situational and her usual BP is on the lower end of normal Clonidine PRN Gave rx for metoprolol alexandre and advised that if she is needing regular PRN clonidine, that she should start a scheduled med and f/u sooner with PCP Endometrial Ca: Diagnosed by biopsy earlier this week Considered Abdominal CT to further evaluate disease burden but with patient asymptomatic in this respect and follow [place] [facility] [place] will defer for now (2) Endometrial cancer determined by uterine biopsy: (3) Elevated troponin: Total Time Total Time Spent Total Time Spent (In Minutes): >30 Total Time Includes: Examination of the Patient, Discharge Planning, Medication Reconciliation, Communication With Other Providers and Other Discharge Plan Discharge Items Patient Disposition: Home - Self-Care Reason For Visit: HYPERTENSION,CHILLS Discharge Diagnosis: Hypertension Activity: Resume your previous activity Non-emergency contact: Primary Care Provider Call non-emergency contact if: you have any medication questions and your symptoms worsen Follow-up/Referrals: Megha Maya MD [Primary Care Provider] - (next week) Diet: Regular Addtl Attending Provider Instructions: You should continue to check your blood pressures daily and record them. If your morning blood pressure is greater than 145 systolic (top number), you should take the clonidine. Please also note in your blood pressure journal the days that you take this medication. As you return to your usual diet, you will hopefully not need this medication. Clonidine is a short acting medication. You will need to recheck your blood pressure later in the day to make sure it has remained at a reasonable level. You can take this medication every 6 hours as needed. I have also given you a prescription for metoprolol. If you are taking the clonidine every day, especially if you are taking it multiple times a day, you may need to start this medication as a regular medication. You do not need to fill this prescription unless that happens. Pending Studies at Discharge: No Stand-Alone Forms: My [employer], Smoking Cessation Medications and DC Order Prescriptions: New metoprolol tartrate 25 mg Tablet 25 mg PO BID Qty: 30 RF: 0 clonidine HCl 0.1 mg tablet 0.1 mg PO Q6H PRN (Reason: elevated BP) 2 Days Qty: 30 RF: 1 Continued multivitamin [Multiple Vitamins] Tablet 1 tab PO DAILY RF: 0 omega 2-ywt-gmm-fish oil 1,000 mg (120 mg-180 mg) Capsule 1 cap PO DAILY RF: 0 Discharge Orders: Discharge Order (Routine); Ordered 06/07/19 Ordered By: Vivian Patiño Admission Data Admit Date/Time: 06/07/19 03:15 Attending Provider: Vivian Patiño Admit Provider: Henri Alejo Primary Care Provider: Megha Maya Other Providers: Damir Winslow ; Johnnie Smith Other Interventions: Discharge Summary Assessment (RN) Last Done: 06/07/19 12:38 DC Date/Time DO NOT enter until pt leaves facility: 06/07/19 13:33 Coding Level of Care Code D/C Day Management >30 mins Diagnoses HTN (hypertension) I10 Hypertension type: unspecified Endometrial cancer determined by uterine biopsy C54.1 Elevated troponin R79.89
--- NOTE | 2019-06-07 15:21 | Cardiology Consultation ---
Date of Consultation June 07, 2019 Assessment & Plan (1) Uncontrolled hypertension: (2) Elevated troponin: (3) HTN (hypertension): (4) Endometrial cancer determined by uterine biopsy: (5) Anxiety: Patient with previous history of hypertension who has been normotensive recently and not required any medication, after receiving a diagnosis of endometrial carcinoma earlier this week she was noted to have a marked elevation of blood pressure and admitted for further evaluation. ECG was benign, echocardiogram was normal, but she did have a borderline troponin elevation which returned to normal. Likely, the mild troponin elevation was supply/demand mismatch due to her marked uncontrolled hypertension. She had no symptoms to suggest clinically significant myocardial ischemia. She responded well to anxiolytic and low-dose beta-mary kay. She was asymptomatic and normotensive this morning, appropriate for discharge. She will continue to monitor her blood pressures and will have clonidine available for as needed use should she have any abrupt elevations. Although she could restart her low-dose beta-mary kay, given her relative bradycardia she would need to closely monitor her heart rate. Further management as an outpatient will depend upon her maintaining normotensive blood pressure and remaining free from symptoms. Also, given her mild troponin elevation in response to the physiologic stress of uncontrolled hypertension, would consider stress study at some point to monitor her exercise hemodynamics and exclude any clinically significant coronary artery disease. History of Present Illness Reason for Consultation: Uncontrolled hypertension/elevated troponin Requesting Physician: Henri Alejo MD Attending Physician: Vivian Patiño DO History of Present Illness 59-year-old woman with prior history of hypertension (on metoprolol in the past but not recently) but no other cardiac history who was recently diagnosed with grade 1 endometrial carcinoma and who is now admitted with abrupt onset of elevated blood pressure accompanied by a mild troponin elevation. As noted, she had been on metoprolol in the past but has not required any vasoactive medication for quite some time. She measures her blood pressure regularly at home and notes a systolic between 110 and 120 mmHg and a diastolic in the 70s. 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 BP 2 days later was 140/90 mmHg. However, she felt vaguely uncomfortable with some chills but no other specific symptoms and presented to the ER where her BP was as high as 222/122 mmHg. She was tremulous and anxious and given IV lorazepam, her BP dropped to 142/88 mmHg. She denied any chest pain at any time, and noted no dyspnea, focal neurologic symptoms, headache, or other cardiovascular or neurologic complaints. She noticed some mild abdominal distention, but attributed this to eating out at a restaurant. She had a normal stress test in 2017. During this hospitalization, her troponin janice to 0.061, then 0.050, this morning it had normalized to 0.037. ECG today showed sinus rhythm and was completely unremarkable. Echocardiogram showed normal LV systolic function with no regional wall motion abnormalities and no significant valvular disease. Overnight, the patient remained completely asymptomatic and she was normotensive this morning (133/77 mmHg). At the time of my evaluation, she had no complaint. Allergies Allergy/AdvReac Type Severity Reaction Status Date / Time codeine AdvReac Mild GI upset Verified 06/07/19 00:49 meloxicam AdvReac Mild GI upset Verified 06/07/19 00:49 Home Medications Home Medications Medication Instructions Recorded Confirmed Type clonidine HCl 0.1 mg PO Q6H PRN 2 Days #30 tab 06/07/19 Rx metoprolol tartrate 25 mg PO BID #30 tab 06/07/19 Rx multivitamin [Multiple Vitamins] 1 tab PO DAILY 06/07/19 06/07/19 History omega 2-wkm-hrt-fish oil 1 cap PO DAILY 06/07/19 06/07/19 History Patient History Medical History Anemia Arthritis Dyslipidemia Endometrial cancer determined by uterine biopsy Endometriosis Fibromyalgia Gallbladder disease High cholesterol HTN (hypertension) with goal to be determined Pain in female genitalia on intercourse Pelvic pain Postmenopausal bleeding Scleroderma Surgical History H/O laparoscopy History of cholecystectomy History of exploratory laparotomy History of laparoscopy fulguration uterine surface endometriosis tissue anterior History of tonsillectomy History of tonsillectomy and adenoidectomy S/P cholecystectomy [place] teeth removed Family History (Updated 06/07/19 @ 15:25 by Johnnie Smith MD) Diabetes Coronary heart disease Father Dyslipidemia Father Mother Heart disease Myocardial infarction Mother Breast cancer Hx of CABG Father Hypertension Father Mother Thyroid disease Social History Preferred Language: Slovak Beliefs That Will Affect Care: None marital status: marital status details: Armando Cartagena Current Living Situation: Spouse current occupational status: 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, lived in [facility] Feels Safe at Home: Yes Safety Concerns: Feels Safe At This Time Smoking Status: Never smoker Hx Alcohol Use: Yes Hx Substance Use: No Physical Activity Frequency: Daily Review of Systems Constitutional: + chills; no fever, no fatigue, no weight loss and no weight gain Eyes: no problem reported Ear, Nose, Mouth, Throat: no problem reported Respiratory: no cough and no dyspnea Cardiovascular: as per Subjective / HPI Gastrointestinal: no change in stools Genitourinary: no problem reported Musculoskeletal: no myalgia Integumentary: no rash and no new lesions Neurologic: no falls and no syncope Psychiatric: + anxiety Hematologic / Lymphatic: no easy bleeding and no easy bruising Physical Exam Physical Exam: No distress. Skin: no ecchymoses or generalized lesions. HEENT: unremarkable. Neck: no JVD or carotid bruits. Lungs: clear. Cardiac: regular rhythm, no murmur or gallop. Abdomen: benign. Extremities: no edema, pulses brisk. Neurologic: normal affect, nonfocal. Results & Data Vital Signs (Past 12 Hours) Vital Signs Temp Pulse Pulse Pulse Resp BP Pulse Ox 06/07/19 12:38 98.2 F 67 56 L 18 124/83 96 06/07/19 11:54 98.2 F 56 L 18 124/83 96 06/07/19 07:39 98.1 F 60 18 133/77 97 06/07/19 04:40 72 06/07/19 04:10 98.4 F 67 18 163/90 H 97 Laboratory Results 06/07/19 06/07/19 06/07/19 00:40 04:56 09:49 Creatinine 0.73 Troponin I 0.061 H* 0.050 H* 0.037 NT-Pro-B Natriuret Pep 71 LDL Cholesterol, Calc 104 Diagnostic Findings ECG showed sinus rhythm and was unremarkable. Monitor showed sinus bradycardia in the high 40s and low 50s. Normal echocardiogram. Normal chest x-ray. PG Care Time/CCT Total # of Minutes Spent Total Time Spent with Patient: Total time spent is greater than 50% in coordination of care (as documented) at patient's floor/unit and/or counseling patient: Coding Level of Care Code 78838 Inpt Consult Level 4 Diagnoses Uncontrolled hypertension I10 Elevated troponin R79.89 HTN (hypertension) I10 Hypertension type: unspecified Endometrial cancer determined by uterine biopsy C54.1 Anxiety F41.9 (1) HTN (hypertension) Hypertension type: unspecified Qualified Code(s): I10 - Essential (primary) hypertension
== END 2019-06-07 13:33 | disposition home or self-care (01) ==
LOC: ED 00:08 → 2S 00:08 → SUATTDRO 03:15 → 2S 03:36